=== PATIENT | male | born 1990 | race Caucasian/White ===

== ENCOUNTER 2022-04-19 11:24 | Emergency (ER) | payer OTHER, MEDICAID ==
[~2022-04-19] VITALS: Ht 167.6 cm; Wt 78.0 kg
[2022-04-19 14:43] VITALS: BP 131/74
== END 2022-04-19 15:05 | disposition home or self-care (01) ==
LOC: ER 11:24
DX: S01.01XA Laceration without foreign body of scalp, initial encounter (principal); X58.XXXA Exposure to other specified factors, initial encounter; Y93.89 Activity, other specified; Y92.89 Other specified places as the place of occurrence of the external cause; Y99.8 Other external cause status
CPT/HCPCS: 12001; 99282; Z7610